=== PATIENT | male | born 1995 | race Caucasian/White ===

== ENCOUNTER 2017-09-03 19:06 | Emergency (ER) | payer BC, MEDICAID ==
[~2017-09-03] VITALS: Ht 177.8 cm; Wt 65.9 kg
[~2017-09-03 19:06] MED LIST: CETI-272; CYCL10TA27; DABI150C PO; DEXL60CA3 PO; LORAZEPAM; METO-292 PO; NABU500T2; ONDA4TAB6 PO; SUCR1TAB34 PO; ZOLOFT
[2017-09-03 19:12] VITALS: BP 115/62
[2017-09-03] MEDS ORDERED: diazepam 5mg tablet PO ONE (20:15)
[2017-09-03] MEDS ORDERED: ketorolac tromethamine 15mg/ml inj. IM ONE (20:15)
[2017-09-03] MEDS ORDERED: METH-360 PO (20:18)
[2017-09-03] MEDS ORDERED: NAPR-56 PO (20:22)
== END 2017-09-03 20:50 | disposition home or self-care (01) ==
LOC: ER 19:07
DX: M54.5 Low back pain (principal); Z86.718 Personal history of other venous thrombosis and embolism; Z98.890 Other specified postprocedural states; Z88.8 Allergy status to other drugs, medicaments and biological substances; Z79.899 Other long term (current) drug therapy
CPT/HCPCS: 96372; 99283; J1885